=== PATIENT | female | born 1965 | race Caucasian/White ===

== ENCOUNTER → 2021-04-08 00:51 | Outpatient (CLI) | payer BC, SELFPAY ==
[2021-04-08 19:38] LABS: SARS-CoV-2 RNA PCR Negative
== END ==
PROVIDERS: PCP Family Medicine; Visit Provider Internal Medicine Gastroenterology
DX: Z01.812 Encounter for preprocedural laboratory examination (principal); Z20.822 Contact with and (suspected) exposure to COVID-19
CPT/HCPCS: C9803; U0003; U0005

== ENCOUNTER 2021-04-11 01:24 | Day surgery (SDC) | payer BC, SELFPAY ==
[2021-04-05 14:57] VITALS: BMI 24.8
[2021-04-11 07:29] VITALS: BP 112/70; PULSE 64; RESP 18; TEMP 36.4; O2SAT 100; BMI 24.8
[2021-04-11] MEDS: LACTATED RINGERS 1,000 ML 150 ML IV CONT (07:39)
--- NOTE | 2021-04-11 08:16 | WPDANESEPPF ---
Anes - Initial Pre Proc Eval Procedure: Operation Date: 04/11/21 08:30 Proposed Procedures p Screening Colonoscopy - Ceferino Presley MD Date/Time: 04/11/21 08:16 Surgeon: Ceferino Presley MD Pre Op Diagnosis: neoplasm screening Patient Data Age: 55 Gender: F Height: 5 ft 7 in Weight: 72 kg Last Vital Signs Temp 97.6 F 04/11/21 07:29 Pulse 64 04/11/21 07:29 Resp 18 04/11/21 07:29 BP 112/70 04/11/21 07:29 Pulse Ox 100 04/11/21 07:29 Allergies Allergy/AdvReac Type Severity Reaction Status Date / Time No Known Allergies Allergy Verified 04/11/21 07:28 Home Medications Medication Instructions Recorded Confirmed Type naproxen 500 mg PO BIDWMEAL PRN 04/05/21 04/05/21 History valacyclovir [Valtrex] 2,000 mg PO Q12H PRN 04/05/21 04/05/21 History Patient hx anesthesia problems: none Family hx anesthesia problems: none [facility] Past Medical History Medical History (Updated 04/11/21 @ 08:11 by Simón Angulo MD) Anxiety Social History Social History Smoking status: Never smoker Alcohol intake: current Drinks per week: 3 Substance use: never Substance use type: does not use Spiritual care concerns: No Anes - Eval Final PreProcedure Day of Procedure 04/11/21 08:16 Patient weight: normal Heart: regular rate and rhythm Lungs: clear to auscultation Airway: Mallampati scale class II Neurological: alert and oriented Last oral intake: >/= 8 hours ASA classification: II Emergent: no Anesthetic plan: proceed Anesthesia type and monitoring: general GIVS and standard monitoring Informed Consent: The patient's anesthetic plan and its attendant risks and benefits were discussed with the patient/family/POA. Questions were solicited and answers provided to the satisfaction of the patient/family/POA.
--- NOTE | 2021-04-11 08:21 | PM.HPGS ---
History of Present Illness History of Present Illness Consent: Risks, benefits, and alternatives have been discussed and questions answered. Patient agrees to proceed with procedure. Chief complaint: neoplasm screening Narrative: Ariane Rashid is a 55 year old female here for colonoscopy, last one 13 years ago. Review of Systems Constitutional: Constitutional: Denies headache(s) and Denies weakness Eyes: Eyes: Denies blurry vision ENT: Reports Normal hearing present, Denies headache(s) and Denies neck pain Cardiovascular: Cardiovascular: Denies chest pain and Denies dyspnea Respiratory: Respiratory: Denies dyspnea Gastrointestinal: Gastrointestinal: Reports no additional gastrointestinal complaints Genitourinary: Genitourinary: Denies dysuria Musculoskeletal: Musculoskeletal: Denies neck pain Integumentary/Breasts: Skin/Breast: Denies dry skin Neurologic: Reports Normal hearing present, Denies headache(s) and Denies weakness Psychiatric: Psychiatric: Denies anxiety Endocrine: Endocrine: Denies change in body appearance Hematologic/Lymphatic: Hematologic/Lymphatic: Denies easy bleeding Allergic/Immunologic: Allergic/Immunologic: Denies urticaria PMFSH Past Medical History Medical History (Updated 04/11/21 @ 08:21 by Ceferino Presley MD) Anxiety Colon cancer screening Social History Social History Smoking status: Never smoker Alcohol intake: current Drinks per week: 3 Substance use: never Substance use type: does not use Spiritual care concerns: No Meds Home Medications and Allergies Home Medications Medication Instructions Recorded Confirmed Type naproxen 500 mg PO BIDWMEAL PRN 04/05/21 04/05/21 History valacyclovir [Valtrex] 2,000 mg PO Q12H PRN 04/05/21 04/05/21 History Allergies Allergy/AdvReac Type Severity Reaction Status Date / Time No Known Allergies Allergy Verified 04/11/21 07:28 Vital Signs Vital Signs - 24 hr 04/11/21 07:29 Temperature 97.6 F Pulse Rate 64 Respiratory Rate 18 Blood Pressure 112/70 Pulse Oximetry 100 Exam Const: General: comfortable and no acute distress HENMT: General nose exam: Normal nares present Eyes: General: appearance normal, both eyes and all related structures Neck: Neck: no JVD Resp: Auscultation: clear to auscultation bilaterally Cardio: Rate: regular rate Rhythm: regular rhythm GI: Inspection: non-distended GI Palp: Yes Soft to palpation Skin: General skin exam: normal color Neuro: General: gait normal Speech: normal speech Extrem: General: normal to inspection Psych: Mental Status: mental status grossly normal Assessment and Plan Assessment and plan (1) Colon cancer screening: Code(s): Z12.11 - Encounter for screening for malignant neoplasm of colon Status: Acute Assessment and Plan: colonoscopy
[2021-04-11 08:47] VITALS: BP 96/57; PULSE 69; RESP 22; O2SAT 100
[2021-04-11 08:57] VITALS: BP 102/68; PULSE 61; RESP 15; O2SAT 100
[2021-04-11 09:07] VITALS: BP 113/65; PULSE 59; RESP 19; O2SAT 100
== END 2021-04-11 09:12 | disposition home or self-care (01) ==
PROVIDERS: PCP Family Medicine; Visit Provider Internal Medicine Gastroenterology
PROC: 0DJD8ZZ Inspection of Lower Intestinal Tract, Via Natural or Artificial Opening Endoscopic (ICD-10-PCS; CPT 45378; principal; 2021-04-11 08:30)
DX: Z12.11 Encounter for screening for malignant neoplasm of colon (principal); K63.5 Polyp of colon; K64.8 Other hemorrhoids; F41.9 Anxiety disorder, unspecified
CPT/HCPCS: 45385; 88305; J2704; J7120

== ENCOUNTER 2024-03-19 19:08 | Emergency (ER) | payer BC, SELFPAY ==
--- NOTE | ~2024-03-19 | XR_ITS ---
EXAMINATION: XR foot LT min 3V DATE: 03/19/2024 19:35 INDICATION: Lateral left foot pain. TECHNIQUE: 4 views of left foot were obtained. COMPARISON: None. FINDINGS: Bone alignment is normal. No fracture. There is mild osteoarthritis of talonavicular joint and first metatarsophalangeal joint. There are enthesophytes at the posterior and plantar aspects of calcaneal tuberosity. IMPRESSION: 1. Mild polyarticular osteoarthritis. Reviewed, dictated and finalized at location E.
--- NOTE | ~2024-03-19 | XR_ITS ---
EXAMINATION: XR ankle LT min 3V DATE: 03/19/2024 19:35 INDICATION: Lateral left ankle pain. TECHNIQUE: 4 views of left ankle were obtained. COMPARISON: None. FINDINGS: Bone alignment is normal. There is an osteochondral lesion of medial talar dome. There is m ild osteoarthritis of talonavicular joint. IMPRESSION: 1. Osteochondral lesion of medial talar dome. Reviewed, dictated and finalized at location E.
[2024-03-19 19:21] VITALS: BP 149/70; PULSE 71; RESP 18; TEMP 37.1; O2SAT 99
--- NOTE | 2024-03-19 19:30 | ED.EXTPRO ---
HPI - Extremity Problem General Chief complaint: Extremity Problem,Nontraumatic Stated complaint: Left Foot/Ankle Injury Source: patient Mode of arrival: ambulatory Limitations: no limitations History of Present Illness HPI Narrative: 58-year-old female presented for complaint of left ankle and foot pain for over 2 weeks. Pain is to the front of the ankle and the top of the foot. She denies known injury. States pain is worse at night after walking all day. Endorses decreased range of motion. Endorses chronic left ankle swelling. Eyes numbness, tingling, weakness or deformity. Took one dose of Naproxen last night without improvement. Related Data Home Medications Medication Instructions Recorded Confirmed naproxen 500 mg tablet 500 mg PO BIDWMEAL PRN Pain 04/05/21 03/19/24 valacyclovir 500 mg tablet 2,000 mg PO Q12H PRN Outbreak 04/05/21 03/19/24 (Valtrex) Allergies Allergy/AdvReac Type Severity Reaction Status Date / Time Sulfa (Sulfonamide Allergy Itching Verified 03/19/24 19:25 Antibiotics) Review of Systems Review of Systems: CONSTITUTIONAL: Denies body aches, fever, chills CARDIOVASCULAR: Denies chest pain, palpitations, or edema. RESPIRATORY: Denies cough or dyspnea. SKIN: Denies rash, or wounds. MUSCULOSKELETAL: reports left ankle foot pain NEUROLOGIC: Denies headache, numbness, tingling, or weakness. PSYCH: Denies depression or anxiety. All systems reviewed & are unremarkable except as noted in HPI and below PMFSH Past Medical History Medical History Anxiety Colon cancer screening Social History Social History Smoking status: Never smoker Alcohol intake: current Drinks per week: 3 Substance use: never Substance use type: does not use Spiritual care concerns: No Comments At time of signature, I have reviewed and agree with nursing past medical, surgical, social and family history unless otherwise noted. Please see nursing chart for further information. There is no relevant family history pertinent to the presenting complaint Exam Narrative: GENERAL: Well-appearing, well-nourished, and in no acute distress. CHEST: Speaks in full sentences. No respiratory distress. HEART: Regular rate and rhythm. Normal and equal peripheral pulses. EXTREMITIES: left foot has normal strength and sensation, slightly decreased range of motion with plantar flexion endorses pain with movement. mild lateral foot and ankle swelling. No ecchymosis, No point tenderness. No open wounds, or obvious deformity; alignment normal, pulse palpable and equal bilaterally, skin warm, dry, pink. Capillary refill less than 3 seconds. SKIN: Warm, dry, no rash. NEURO: Alert and oriented x3. PSYCH: Normal mood and affect Course Course Emergency Course: Patient is aware of diagnosis, understands and agrees to treatment plan. Anticipatory guidance given. Patient agrees to follow-up as directed and is aware of reasons to seek care at the emergency department. Portions of this record may have been created with voice recognition software Level of Care: Express Care Visit Vital Signs Vital signs: Vital Signs Temperature 98.7 F 03/19/24 19:21 Pulse Rate 71 03/19/24 19:21 Respiratory Rate 18 03/19/24 19:21 Blood Pressure 149/70 H 03/19/24 19:21 Pulse Oximetry 99 03/19/24 19:21 Oxygen Delivery Room Air 03/19/24 19:21 Temperature 98.7 F 03/19/24 19:21 Pulse Rate 71 03/19/24 19:21 Respiratory Rate 18 03/19/24 19:21 Blood Pressure 149/70 H 03/19/24 19:21 Pulse Oximetry 99 03/19/24 19:21 Oxygen Delivery Room Air 03/19/24 19:21 Reviewed MDM - Extremity (Nontraumatic) MDM Narrative Medical decision making narrative: report of x-ray reviewed with patient. Machelle applied. Discussed physical exam findings. Advised supportive measures and signs/s
== END 2024-03-19 19:53 | disposition home or self-care (01) ==
PROVIDERS: Emergency Provider Nurse Practitioner Family; PCP Nurse Practitioner Family
DX: M25.572 Pain in left ankle and joints of left foot (principal)
CPT/HCPCS: 73610; 73630; 99213; G0463